=== PATIENT | female | born 1965 | race Two or more races ===

== ENCOUNTER 2017-04-15 06:56 | Emergency (ER) | payer MEDICAID, OTHER ==
[~2017-04-15] VITALS: Ht 167.6 cm; Wt 83.9 kg
[2017-04-15 06:56] VITALS: BP 128/77
[~2017-04-15 06:56] MED LIST: CEPHALEXIN500 MG ORAL; CIPRO500 MG PO; CIPROFLOXACIN500 M2 ORAL; DIPHENHYDRAMINE25 M1 ORAL; Ketorolac 30mg Inj ONE; NEXIUM20 MG ORAL; NORCO 5-325 TA1 EAC1 ORAL; PREDNISONE20 MG ORAL; ZANTAC150 MG ORAL; ZOFRAN8 MG ORAL
--- NOTE | 2017-04-15 07:10 | Emergency Room Report ---
History of Present Illness General Chief Complaint: Multiple Trauma/Fall Source: Patient Present Illness HPI 51-year-old female, no significant past medical history, presenting with pain after fall. Patient states that at 1:30 in the morning, she was walking her dog , her dog pulled her and then she slammed her body into the wall. She did not fall or hit her head. Now patient is complaining of chest wall pain since the incident. States it is not painful if she was sitting still however when she twists or moves it is more painful. Denies any shortness of breath. No other complaints Allergies: Coded Allergies: No Known Allergies (Verified , 01/22/06) Patient History Past Medical History: see triage record Past Surgical History: none Pertinent Family History: none Last Menstrual Period: none Now: No Reviewed Nursing Documentation: PMH: Agreed, PSxH: Agreed Nursing Documentation-PMH Hx Hypertension: Yes History Of Psychiatric Problem: Yes Review of Systems All Other Systems: negative except mentioned in HPI Physical Exam Vital Signs Date Time Temp Pulse Resp B/P (MAP) Pulse Ox O2 Delivery O2 Flow Rate FiO2 04/15/17 06:44 98.1 107 18 128/77 99 Room Air 98.1 Sp02 EP Interpretation: reviewed, normal General Appearance: alert, GCS 15, non-toxic, mild distress Head: normocephalic, atraumatic Eyes: bilateral eye normal inspection, bilateral eye PERRL, bilateral eye EOMI ENT: normal ENT inspection, normal pharynx, normal voice, moist mucus membranes Neck: normal inspection, full range of motion, supple Respiratory: normal inspection, lungs clear, normal breath sounds, no respiratory distress, no retraction, no wheezing, speaking full sentences, chest symmetrical Cardiovascular #1: regular rate, rhythm, other - Substernal chest wall tenderness Cardiovascular #2: 2+ radial (R), 2+ radial (L) Gastrointestinal: normal inspection, non tender, soft, non-distended, no guarding Musculoskeletal: normal inspection, back normal, normal range of motion, non- tender Neurologic: normal inspection, alert, oriented x3, responsive, motor strength/ tone normal, sensory intact, normal gait, speech normal Psychiatric: normal inspection, judgement/insight normal, memory normal Skin: normal inspection, normal color, no rash, warm/dry, well hydrated, normal turgor Medical Decision Making Diagnostic Impression: Primary Impression: Chest wall pain ER Course 51-year-old female presenting with chest wall pain after slamming into a wall DDX: low concern with rib/sternal fracture as mechanism was low, more likely contusion Plan: Chest x-ray, pain control ER course: Patient has remained stable during ED stay. given pain meds, pain improved XR neg Disposition: Patient is to be discharged to home. Prescriptions given are motrin Patient is instructed to follow up with their primary care doctor within 5 days. Please note that this Emergency Department Report was dictated using [employer] photographer technology software, occasionally this can lead to erroneous entry secondary to interpretation by the dictation equipment EKG Diagnostic Results EP Interpretation: Yes Rate: normal Rhythm: NSR ST Segments: No acute changes ASA given to patient: No Rhythm Strip EP Interpretation: Yes Rate: 84 Rhythm: NSR, no PVCs, no ectopy Chest X-ray CXR: Ordered: Yes 1 view Indication: Chest pain EP interpretation: Yes Interpretation: No FX, No consolidation, no effusion, no PTX, no acute cardiopulmonary disease Impression: No acute disease Electronically signed by Americo Turcios MD Last Vital Signs Date Time Temp Pulse Resp B/P (MAP) Pulse Ox O2 Delivery O2 Flow Rate FiO2 04/15/17 06:56 98.1 18 128/77 99 Room Air 98.1 04/15/17 06:44 107 Disposition: HOME, SELF-CARE Condition: Improved Scripts Ibuprofen* (MOTRIN*) 600 Mg Tablet 600 MG ORAL Q8H Y for For Pain, #30 TAB 0 Refills Prov: Americo Turcios M.D. 04/15/17 Americo Turcios M.D. Apr 15, 2017 07:10
[2017-04-15] MEDS ORDERED: IBUPROFEN600 MG ORAL (07:11)
[2017-04-15] MEDS ORDERED: Ketorolac 30mg Inj IM ONE (07:15)
[2017-04-15 07:54] VITALS: BP 106/67
--- NOTE | 2017-04-15 10:39 | Diagnostic Imaging Report ---
Indication: Dyspnea Comparison: None A single view chest radiograph was obtained. Findings: Cardiomediastinal appearance is within normal limits for age. Pulmonary vascularity is appropriate. The diaphragmatic contour is smooth and costophrenic angles are sharp. No pleural effusions are identified. The bones are unremarkable. Impression: No acute findings
--- NOTE | 2017-04-26 16:45 | Cardiology Report ---
APPROVED REPORT EKG Measurement Heart [id number] Normal sinus rhythm Possible Left atrial enlargement Borderline ECG
== END 2017-04-15 08:18 | disposition home or self-care (01) ==
LOC: EDBD 06:56 → EMR 07:15
DX: R07.89 Other chest pain (principal); I10 Essential (primary) hypertension
CPT/HCPCS: 71045; 93005; 96372; 99283; J1885